=== PATIENT | female | born 1990 | race Caucasian/White ===

== ENCOUNTER 2017-11-30 10:58 | Emergency (ER) | payer BC ==
[2017-11-30 12:00] LABS: ABS Basophils 0.1 10^3/ul (0-0.2); ABS Eosinophils 0.2 10^3/ul (0-0.6); ABS Lymphocytes 2.2 10^3/ul (1.0-4.8); ABS Monocytes 0.8 10^3/ul (0-0.8); ABS Neutrophils 5.4 10^3/ul (1.5-7.7); ABS Nucleated RBC 0 10^3/ul; Eosinophil % 2.4 % (0-6); Hematocrit 37 % (35-47); Lymphocyte % 25.4 % (25-47); Mean Corpuscular HGB Conc 33 g/dl (31-36); Mean Corpuscular Hemoglobin 27 pg (27-31); Mean Corpuscular Volume 84 fL (80-97); Mean Platelet Volume 7 um3 (7.4-10.4); Nucleated Red Blood Cells % 0.1; Platelet Count 416 10^3/ul (150-450); Red Cell Distribution Width 15 % (10.5-15); White Blood Count 8.7 10^3/ul (3.5-10.8)
[2017-11-30 12:16] LABS: EGFR Non-African American 82.6 (>60)
[2017-11-30 12:56] LABS: Urine Appearance Cloudy; Urine Blood Negative (Negative); Urine Color Yellow; Urine Ketones Negative (Negative); Urine Protein Negative (Negative); Urine Specific Gravity 1.024 (1.010-1.030); Urine Urobilinogen Negative (Negative)
[2017-11-30] MEDS ORDERED: Iohexol 300* (CONTRAST) 10 ML SDV IV ONE (13:26)
--- NOTE | 2017-11-30 13:56 | RAD ---
INDICATION: Pleuritic left chest pain COMPARISON: None TECHNIQUE: PA and lateral views of the chest were obtained. FINDINGS: The heart and mediastinum are normal in size and contour. The lungs are grossly clear. There is no evidence of large pleural effusion. Visualized bones are normal for the patient's age. There is no radiographic evidence of free air beneath the diaphragm IMPRESSION: No radiographic evidence of acute cardiopulmonary disease.
--- NOTE | 2017-11-30 14:55 | RAD ---
CLINICAL HISTORY: Left upper quadrant pain COMPARISON: None TECHNIQUE: Contrast enhanced CT examination of the abdomen and pelvis from the lung bases through the initial tuberosities. The patient received 92 mL Omnipaque 300 intravenously prior to imaging.The patient received oral contrast as well prior to imaging. FINDINGS: VISUALIZED LUNG BASES: The visualized lung bases are grossly clear. There is no pleural effusion. ABDOMEN AND PELVIS: The liver, spleen, pancreas and adrenal glands are grossly normal in appearance. The gallbladder is normal. The kidneys are normal in appearance without focal mass, calcification or signs of hydronephrosis. The oral contrast has progressed as far as the splenic flexure. The small and large bowel are not distended. The patient's normal appendix is identified in the right lower quadrant with gas in the lumen measuring 5 mm in diameter (coronal image 44). There is a large amount of stool throughout the length of the colon without pathologic dilatation. The small bowel loops in the left hemiabdomen exhibit air-fluid levels and very questionable mild wall thickening (for example coronal image 41 of 90 and axial and 34). There is no gross retroperitoneal or mesenteric lymphadenopathy. The pelvic viscera is normal in appearance. The abdominal aorta and iliac arteries are normal in course and diameter. There are no sinister bone lesions. IMPRESSION: 1. There is a large amount of stool throughout the length of the not pathologically dilated colon. Please correlate to signs or symptoms of constipation. 2. There is very mild thickening of the wall involving the small bowel loops in the left upper quadrant with air-fluid levels the lumen. An infectious or inflammatory etiology could be considered. Alternatively this could be related to overall reduced bowel motility.
[2017-11-30] MEDS ORDERED: Sodium Phosphate ADULT ENEMA* 118 ml bottle PR ONE (14:58)
[2017-11-30] MEDS ORDERED: Magnesium CITRATE* 300 ML BTL PO ONE (14:58)
[2017-11-30 15:12] VITALS: BP 106/64
--- NOTE | 2017-12-12 12:07 | ED ---
Raul Laws Gabriel, scribed for Jg Hi MD on 11/30/17 at 1135 . Abdominal Pain/Female - HPI Summary HPI Summary: This patient is a 27 year old F presenting to [facility] with a chief complaint of LLQ pain since 11-28-17 that is increasing. The patient rates the constant pain 7 /10 in severity. Symptoms aggravated by inhalation. Symptoms alleviated by nothing. Patient has taken prune juice and omeprazole with no relief. Patient reports trouble breathing. The pain on inspiration is so severe that it does deter her from doing things that cause increased respiration like walking. Patient denies vomiting, constipation, melena, blood in stool, diarrhea, fever, diaphoresis, chills, dysuria, blood in urine, and SOB. She is just getting over a cold with minor coughing and rhinorrhea. Pt is on BC and was recently in a plane for an extending period of time. Hx of gastritis. LNMP was 3 weeks ago denies . - History of Current Complaint Chief Complaint: EDAbdPain Stated Complaint: ABD PAIN Time Seen by Provider: 11/30/17 11:30 Hx Obtained From: Patient Onset/Duration: Lasting Days - 3, Still Present Timing: Constant Pain Intensity: 6 Pain Scale Used: 0-10 Numeric Location: Discrete At: LLQ Radiates: No Aggravating Factor(s): Deep Breaths Alleviating Factor(s): Nothing Associated Signs and Symptoms: Positive: Negative - vomiting, constipation, melena, blood in stool, diarrhea, fever, diaphoresis, chills, dysuria, blood in urine, and SOB, Other: - trouble breathing Allergies/Adverse Reactions: Allergies Allergy/AdvReac Type Severity Reaction Status Date / Time azithromycin Allergy Hives Verified 11/30/17 11:08 [From Zithromax Z-Michael] Penicillins Allergy Hives/Diff. Verified 11/30/17 11:07 Breathing/I tching sand fleas Allergy Hives Uncoded 11/30/17 11:08 PMH/Surg Hx/FS Hx/Imm Hx Endocrine/Hematology History: Reports: Hx Thyroid Disease GI History: Reports: Other GI Disorders - gastritis History: Reports: Other Problems/Disorders - PCOS Denies: Hx Acute Renal Failure Psychiatric History: Reports: Other Psychiatric Issues/Disorders - OCD Infectious Disease History: No Infectious Disease History: Denies: Traveled Outside the [place] in Last 30 Days - Family History Known Family History: Negative: Diabetes, Renal Disease, Respiratory Disease, Seizure Disorder, Blood Disorder - Social History Occupation: Student Alcohol Use: Rare Substance Use Type: Reports: None Smoking Status (MU): Never Smoked Tobacco Review of Systems Negative: Fever, Chills, Skin Diaphoresis Positive: Nasal Discharge - due to cold . Negative: Sore Throat Negative: Chest Pain Positive: Cough - due to cold. Negative: Shortness Of Breath Gastrointestinal: Negative - constipation, melena, blood in stool Positive: Abdominal Pain. Negative: Vomiting, Diarrhea, Nausea Negative: dysuria, hematuria Negative: Myalgia Negative: Rash Neurological: Negative - dizziness All Other Systems Reviewed And Are Negative: Yes Physical Exam - Summary Physical Exam Summary: Constitutional: Well-developed, Well-nourished, Alert. (-) Distressed Skin: Warm, Dry HENT: Normocephalic; Atraumatic Eyes: Conjunctiva normal Neck: Musculoskeletal ROM normal neck. (-) JVD, (-) Stridor, (-) Tracheal deviation Cardio: Rhythm regular, rate normal, Heart sounds normal; Intact distal pulses; The pedal pulses are 2+ and symmetric. Radial pulses are 2+ and symmetric. (-) Murmur Pulmonary/Chest wall: Effort normal. (-) Respiratory distress, (-) Wheezes, (-) Rales Abd: Soft, (-) Tenderness, (-) Distension, (-) Guarding, (-) Rebound Back: Left CVA tenderness Musculoskeletal: (-) Edema Lymph: (-) Cervical adenopathy Neuro: Alert, Oriented x3 Psych: Mood and affect Normal Triage Information Reviewed: Yes Vital Signs On Initial Exam: Initial Vitals Temp Pulse Resp BP Pulse Ox 97.6 F 94 18 136/66 98 11/30/17 11:03 11/30/17 11:03 11/30/17 11:03 11/30/17 11:03 11/30/17 11:03 Vital Signs Reviewed: Yes Diagnostics - Vital Signs Vital Signs Temp Pulse Resp BP Pulse Ox 11/30/17 11:24 99 96 11/30/17 11:03 97.6 F 94 18 136/66 98 - Laboratory Result Diagrams: 11/30/17 11:50 11/30/17 11:50 Lab Statement: Any lab studies that have been ordered have been reviewed, and results considered in the medical decision making process. - Radiology CXR Radiology Interpretation Completed By: Radiologist - No radiographic evidence of acute cardiopulmonary disease. CT ABD/Pelvis reveals , per radiologist, 1. There - CT CT ABD/Pelvis CT Interpretation Completed By: Radiologist - 1. There is a large amount of stool throughout the length of the not pathologically dilated colon. Please correlate to signs or symptoms of constipation. 2. There is very mild thickening of the wall involving the small bowel loops in the left upper quadrant with air-fluid levels the lumen. An infectious or inflammatory etiology could be considered. Alternatively this could be related to overall reduced bowel motility. ED physician has reviewed this radiology report. Abdominal Pain Fem Course/Dx - Course Course Of Treatment: This patient is a 27 year old F presenting to [facility] with a chief complaint of LLQ pain since 11-28-17 that is increasing. The patient rates the constant pain 7/10 in severity. Symptoms aggravated by inhalation. Symptoms alleviated by nothing. Patient has taken prune juice and omeprazole with no relief. Patient reports trouble breathing. The pain on inspiration is so severe that it does deter her from doing things that cause increased respiration like walking. Patient denies vomiting, constipation, melena, blood in stool, diarrhea , fever, diaphoresis, chills, dysuria, blood in urine, and SOB. She is just getting over a cold with minor coughing and rhinorrhea. Pt is on BC and was recently in a plane for an extending period of time. Hx of gastritis. LNMP was 3 weeks ago denies . . CXR reveals, per radiologist, No radiographic evidence of acute cardiopulmonary disease. CT ABD/Pelvis reveals , per radiologist, 1. There is a large amount of stool throughout the length of the not pathologically. dilated colon. Please correlate to signs or symptoms of constipation. 2. There is very mild thickening of the wall involving the small bowel loops in the left. upper quadrant with air-fluid levels the lumen. An infectious or inflammatory etiology. could be considered. Alternatively this could be related to overall reduced bowel. motility. Test results with no significant abnormalities except for a lactic acid of 2.9. In the ED course the patient was given magnesium citrate and enema. Dx constipation. Patient will be discharged with prescription for Colace and follow up from PCP. The patient is agreeable with this plan. - Diagnoses Provider Diagnoses: Constipation Discharge - Discharge Plan Condition: Stable Disposition: HOME Prescriptions: Docusate CAP* [Colace Cap*] 100 mg PO BID PRN #30 cap PRN Reason: Constipation Patient Education Materials: Laxative, Stool Softeners (By mouth), Constipation (ED) Referrals: [facility] [Primary Care Provider] - Additional Instructions: Increase fruit and vegetable intake. RETURN TO EMERGENCY DEPARTMENT FOR ANY NEW OR WORSENING SYMPTOMS The documentation as recorded by the Raul jensen Gabriel accurately reflects the service I personally performed and the decisions made by , Jg Hi MD.
== END 2017-11-30 15:11 | disposition home or self-care (01) ==
LOC: ED 10:58
DX: K59.00 Constipation, unspecified (principal); R10.32 Left lower quadrant pain; R05 Cough; R50.9 Fever, unspecified
CPT/HCPCS: 36415; 71046; 74177; 80053; 81003; 83605; 83690; 84702; 85025; 85379; 86140; 87502; 99283; A9270-GY; Q9967